=== PATIENT | female | born 1960 | race Caucasian/White ===

== ENCOUNTER 2024-01-04 09:27 | Day surgery (SDC) | payer MEDICARE, OTHER ==
[~2024-01-04 09:27] MED LIST: Sodium Chloride 0.9% 10 ML Syringe FLUSH PRN; Sodium Chloride 0.9% 10 ML Syringe FLUSH SCH
[2024-01-04] MEDS ORDERED: HYDROmorphone 0.5 MG/0.5 ML Syringe ONE (09:37)
[2024-01-04] MEDS ORDERED: Propofol 200 MG/20 ML SDV ONE ×3 (09:37→12:02)
[2024-01-04] MEDS ORDERED: Sugammadex Sodium 200 MG/2 ML VIAL IV ONE (09:39)
[2024-01-04] MEDS ORDERED: dexmedeTOMIDine HCl 200 MCG/2 ML SDV ONE (09:39)
[2024-01-04] MEDS ORDERED: Succinylcholine 200 MG/10 ML MDV ONE (09:39)
[2024-01-04] MEDS ORDERED: Lidocaine 1% 5 ML VIAL ONE (09:39)
[2024-01-04] MEDS ORDERED: Rocuronium 50 MG/5 ML Vial ONE (09:39)
[2024-01-04] MEDS ORDERED: Ondansetron 4 MG/2 ML SDV ONE ×2 (09:39→12:39)
[2024-01-04] MEDS ORDERED: fentaNYL 100 MCG/2 ML SDV ONE ×2 (09:42→12:44)
[2024-01-04] MEDS: Lactated Ringers 1,000 ML IV SCH (10:00)
[2024-01-04] MEDS ORDERED: Famotidine 20 MG/2 ML SDV ONE (10:12)
[2024-01-04] MEDS ORDERED: Midazolam 1 MG/ML 2 ML SDV ONE (10:26)
[2024-01-04] MEDS: Scopalamine 1mg/3day Transdermal Patch TOP ONE (10:30)
[2024-01-04] MEDS ORDERED: Dexamethasone 4 MG/ML 5 ML MDV ONE (11:15)
[2024-01-04] MEDS ORDERED: ceFAZolin 2 GM Vial ONE (11:28)
[2024-01-04] MEDS: EPINEPHrine 1 MG/ML SDV ONE (11:35)
[2024-01-04] MEDS: Bupivacaine 0.5% 30 ML SDV ONE (11:35)
[2024-01-04] MEDS ORDERED: Ketorolac 30 MG/ML SDV ONE (11:41)
[2024-01-04] MEDS ORDERED: Metoprolol Tartrate 5 MG/5 ML SDV ONE (11:43)
[2024-01-04] MEDS ORDERED: Lactated Ringers 1,000 ML IV ONE (12:15)
[2024-01-04] MEDS: Ondansetron 4 MG/2 ML SDV IVPUSH PRN (12:45)
[2024-01-04] MEDS ORDERED: HYDROmorphone 0.5 MG/0.5 ML Syringe IVPUSH PRN (12:47)
[2024-01-04] MEDS: fentaNYL 100 MCG/2 ML SDV IVPUSH PRN (12:48)
== END 2024-01-04 14:37 | disposition home or self-care (01) ==
LOC: JD.SDS 09:27
PROVIDERS: ATTEND Surgery
DX: K80.10 Calculus of gallbladder with chronic cholecystitis without obstruction (principal); K21.9 Gastro-esophageal reflux disease without esophagitis; F32.A Depression, unspecified; F41.9 Anxiety disorder, unspecified; E03.9 Hypothyroidism, unspecified; Z87.891 Personal history of nicotine dependence; Z79.890 Hormone replacement therapy; Z79.899 Other long term (current) drug therapy
CPT/HCPCS: 47562; A9270; J0171; J0330; J0665; J0690; J1100; J1170; J1885; J2250; J2405; J2704; J3010; J3490; J7120; 00790

== ENCOUNTER 2024-08-29 06:46 | Day surgery (SDC) | payer MEDICARE, OTHER ==
[~2024-08-29 06:46] MED LIST changes: +Lactated Ringers 1,000 ML IV SCH
[2024-08-29] MEDS ORDERED: Lidocaine 1% 4 ML ONE (07:04)
[2024-08-29] MEDS ORDERED: Propofol 200 MG/20 ML SDV ONE ×2 (07:04→07:30)
[2024-08-29] MEDS: Lactated Ringers 1,000 ML IV SCH (07:28)
== END 2024-08-29 09:14 | disposition home or self-care (01) ==
LOC: JD.SDS 06:46
PROVIDERS: ATTEND Surgery
DX: Z12.11 Encounter for screening for malignant neoplasm of colon (principal); D12.3 Benign neoplasm of transverse colon; K63.89 Other specified diseases of intestine; E03.9 Hypothyroidism, unspecified; Z79.899 Other long term (current) drug therapy; Z79.890 Hormone replacement therapy
CPT/HCPCS: 45380; 45385; 88305; J2704; J7120; 00811; J3490